=== PATIENT | female | born 1940 | race Caucasian/White ===

== ENCOUNTER 2018-05-10 06:42 | Emergency (ER) | payer MEDICARE ==
[~2018-05-10] VITALS: Ht 167.6 cm; Wt 63.2 kg
[2018-05-10 07:06] VITALS: BP 193/81
[2018-05-10] MEDS ORDERED: BENZ-16 PO (07:12)
[2018-05-10] MEDS ORDERED: LEVO500T2 PO (07:12)
== END 2018-05-10 07:19 | disposition home or self-care (01) ==
LOC: ER 06:43
DX: J20.9 Acute bronchitis, unspecified (principal); Z79.2 Long term (current) use of antibiotics; Z79.899 Other long term (current) drug therapy
CPT/HCPCS: 99283

== ENCOUNTER 2025-03-17 13:37 | Emergency (ER) | payer MEDICARE ==
[~2025-03-17] VITALS: Ht 165.1 cm; Wt 67.3 kg
[2025-03-17 13:46] VITALS: BP 154/79; PULSE 71; O2SAT 96
[2025-03-17] MEDS: HYDROcodone/acetaminophen 10/325mg tab PO ONE (14:51)
[2025-03-17] MEDS ORDERED: LIDO700A32 TOP (15:13)
[2025-03-17] MEDS ORDERED: HYDR-3965 PO (15:13)
[2025-03-17] MEDS ORDERED: GABA300C PO (15:13)
[2025-03-17 15:27] VITALS: RESP 16; TEMP 97.8
== END 2025-03-17 15:28 | disposition home or self-care (01) ==
LOC: ER 13:37
DX: S22.31XA Fracture of one rib, right side, initial encounter for closed fracture (principal); F03.90 Unspecified dementia, unspecified severity, without behavioral disturbance, psychotic disturbance, mood disturbance, and anxiety; W18.39XA Other fall on same level, initial encounter; Y93.89 Activity, other specified; Y92.89 Other specified places as the place of occurrence of the external cause; Y99.8 Other external cause status
CPT/HCPCS: 71100; 72100; 72220; 99284